=== PATIENT | male | born 1960 | race Caucasian/White ===

== ENCOUNTER 2017-03-14 10:43 | Day surgery (SDC) | payer BC ==
--- NOTE | ~2017-03-14 | EGD ---
EGD REPORT [facility] [address] [address] NAME: TIMOTHY RAMIRES : [birth year] STATUS : REG [facility]#: [id number] AGE: 57 ADM/REG DATE : 03/14/17 MR#: [id number] REPORT SERV DATE: 03/14/17 DICTATED BY: CHARLI TRENT DATE: 03/14/17 REPORT STATUS : Draft TRANSCRIBED BY: [employer] DATE: 03/14/17 Endoscopy Center Patient Name: Timothy Ramires Date of : 1960 Attending MD: CHARLI TRENT MD Procedure Date No Time: 03/14/2017 Procedure: Colonoscopy Indications: Heme positive stool, Last colonoscopy: August 2009 Referring MD: John Kirkland Medicines: See the Anesthesia note for documentation of the administered medications Complications: No immediate complications. Procedure: Pre-Anesthesia Assessment: - ASA Grade Assessment: III - A patient with severe systemic disease. After I obtained informed consent, the scope was passed under direct vision. Throughout the procedure, the patient's blood pressure, pulse, and oxygen saturations were monitored continuously. The [facility] [id number] was introduced through the anus and advanced to the terminal ileum, with identification of the appendiceal orifice and IC valve. The colonoscopy was performed without difficulty. The patient tolerated the procedure well. The quality of the bowel preparation was adequate. Findings: The perianal and digital rectal examinations were normal. Diverticula were found in the sigmoid colon. Internal hemorrhoids were found during retroflexion and were small. Impression: - Diverticulosis in the sigmoid colon. - Internal hemorrhoids. Recommendation: - Patient has a contact number available for emergencies. The signs and symptoms of potential delayed complications were discussed with the patient. Return to normal activities tomorrow. Written discharge instructions were provided to the patient. - Regular diet. - Continue present medications. - Repeat colonoscopy in 10 years for screening purposes. - Repeat colonoscopy in 10 years. IF develop symptoms like bleeding or diarrhea, or Family history of colon cancer or polyps before age 60, you could require sooner colonoscopy EGD REPORT [address] [place]. [address] NAME: TIMOTHY RAMIRES : [birth year] STATUS : REG [facility]#: [id number] AGE: 57 ADM/REG DATE : 03/14/17 MR#: [id number] REPORT SERV DATE: 03/14/17 DICTATED BY: CHARLI TRENT DATE: 03/14/17 REPORT STATUS : Draft TRANSCRIBED BY: [employer] DATE: 03/14/17 - Restart Coumadin and Lovenox today. Follow Dr Jalloh instructions Procedure Code(s): --- Professional --- 60183, Colonoscopy, flexible, proximal to splenic flexure; diagnostic, with or without collection of specimen(s) by brushing or washing, with or without colon decompression (separate procedure) Diagnosis Code(s): --- Professional --- K64.8, Other hemorrhoids K57.30, Diverticulosis of large intestine without perforation or abscess without bleeding R19.5, Other fecal abnormalities CPT copyright 2013 [employer]. All rights reserved. The codes documented in this report are preliminary and upon manufacturing engineer machining review may be revised to meet current compliance requirements. Charli Trent MD CHARLI TRENT MD 03/14/2017 12:49 PM This report has been signed electronically. Number of Addenda: 0 Note Initiated On: 03/14/2017 12:30 PM Scope Withdrawal Time 0 hours 6 minutes 25 seconds [address] [place] [address]
--- NOTE | ~2017-03-14 | EGD ---
EGD REPORT [facility] [address] [address] NAME: TIMOTHY RAMIRES : [birth year] STATUS : REG [facility]#: [id number] AGE: 57 ADM/REG DATE : 03/14/17 MR#: [id number] REPORT SERV DATE: 03/14/17 DICTATED BY: CHARLI TRENT DATE: 03/14/17 REPORT STATUS : Draft [facility] DATE: 03/14/17 Endoscopy Center Patient Name: Timothy Ramires Date of : 1960 Attending MD: CHARLI TRENT MD Procedure Date No Time: 03/14/2017 Procedure: Upper GI endoscopy Indications: Heme positive stool Referring MD: John Kirkland Medicines: See the Anesthesia note for documentation of the administered medications Complications: No immediate complications. Procedure: Pre-Anesthesia Assessment: - ASA Grade Assessment: III - A patient with severe systemic disease. After obtaining informed consent, the endoscope was passed under direct vision. Throughout the procedure, the patient's blood pressure, pulse, and oxygen saturations were monitored continuously. The [facility] H190 [id number] was introduced through the mouth, and advanced to the second part of duodenum. The upper GI endoscopy was accomplished without difficulty. The patient tolerated the procedure well. Findings: Mild prominent fold in duodenal bulb, Biopsies were taken with a cold forceps for histology. The entire examined stomach was normal. The cardia and gastric fundus were normal on retroflexion. A small hiatus hernia was present. Impression: - Mild prominent fold in duodenal bulb - Normal stomach. - Hiatus hernia. Recommendation: - Patient has a contact number available for emergencies. The signs and symptoms of potential delayed complications were discussed with the patient. Return to normal activities tomorrow. Written discharge instructions were provided to the patient. - Regular diet. - Continue present medications. - FOR YOUR BIOPSY RESULTS: Please go to [email or web address] and register to receive your results via the portal. Your biopsy results will be EGD REPORT [facility] [address] [place]. [address] NAME: TIMOTHY RAMIRES : [birth year] STATUS : REG [facility]#: [id number] AGE: 57 ADM/REG DATE : 03/14/17 MR#: [id number] REPORT SERV DATE: 03/14/17 DICTATED BY: CHARLI TRENT DATE: 03/14/17 REPORT STATUS : Draft TRANSCRIBED BY: [employer] DATE: 03/14/17 posted there in about 7 to 10 days. IF you do not see result in 10 days, call office. Procedure Code(s): --- Professional --- 63867, Esophagogastroduodenoscopy, flexible, transoral; with biopsy, single or multiple Diagnosis Code(s): --- Professional --- K44.9, Diaphragmatic hernia without obstruction or gangrene R19.5, Other fecal abnormalities CPT copyright 2013 [employer]. All rights reserved. The codes documented in this report are preliminary and upon professional fee coder review may be revised to meet current compliance requirements. Charli Trent MD CHARLI TRENT MD 03/14/2017 12:33 PM This report has been signed electronically. Number of Addenda: 0 Note Initiated On: 03/14/2017 11:11 AM Scope Withdrawal Time 0 hours 0 minutes 0 seconds [address] [place] [address]
[~2017-03-14 10:43] MED LIST: COUMADIN10 MG PO; COUMADIN7.5 MG PO; FIBERCON PO; FISH OIL1200 MG PO; LOVENOX80 SC; MAX25 PO; PRAVACHOL 40 MG PO; TOPXL25 PO
[2017-03-14 11:18] LABS: INTERNATIONAL NORMAL RATI 1.1 UNITS (-); PROTIME (NOT ORD) 14.4 SEC (12.0-14.5)
== END 2017-03-14 23:59 | disposition home health service (06) ==
LOC: DMU 10:43
PROVIDERS: Anesthesiology; Internal Medicine Gastroenterology
PROC: 0DJD8ZZ Inspection of Lower Intestinal Tract, Via Natural or Artificial Opening Endoscopic (ICD-10-PCS; principal; 2017-03-14 12:30)
PROC: 0DB98ZX Excision of Duodenum, Via Natural or Artificial Opening Endoscopic, Diagnostic (ICD-10-PCS; 2017-03-14 12:30)
DX: K64.8 Other hemorrhoids (principal); K57.30 Diverticulosis of large intestine without perforation or abscess without bleeding; K44.9 Diaphragmatic hernia without obstruction or gangrene; I10 Essential (primary) hypertension; K21.9 Gastro-esophageal reflux disease without esophagitis; F41.9 Anxiety disorder, unspecified; F32.9 Major depressive disorder, single episode, unspecified; M19.90 Unspecified osteoarthritis, unspecified site; E78.00 Pure hypercholesterolemia, unspecified; D64.9 Anemia, unspecified; Z88.0 Allergy status to penicillin; Z79.01 Long term (current) use of anticoagulants; Z79.899 Other long term (current) drug therapy; Z98.890 Other specified postprocedural states
CPT/HCPCS: 85610; 88305